=== PATIENT | male | born 1970 | race Caucasian/White ===

== ENCOUNTER 2016-12-14 16:05 | Emergency (ER) | payer MEDICAID ==
[2016-12-14 16:21] VITALS: TEMP 97.4
[2016-12-14 17:10] LABS: BASO % 0.4 % (0.0-2.0); EOS # 0.2 K/uL (0.0-0.7); EOS % 4.1 % (0.0-4.0); LYMPH # 1.8 K/uL (1.0-4.3); LYMPH % 34.4 % (20.0-40.0); MEAN CELL VOLUME 86.4 fL (80.0-94.0); MEAN CORPUSCULAR HEMOGLOBIN 27.3 pg (27.0-31.0); MEAN CORPUSCULAR HGB CONC 31.7 g/dL (33.0-37.0); MEAN PLATELET VOLUME 8.9 fL (7.2-11.7); MONO # 0.7 K/uL (0.0-0.8); MONO % 12.6 % (0.0-10.0); RED CELL DISTRIBUTION WIDTH 16.4 % (11.5-14.5); WHITE BLOOD COUNT 5.4 K/uL (4.8-10.8)
[2016-12-14 17:16] LABS: CHLORIDE 104 mmol/L (98-107)
[2016-12-14 17:17] LABS: POTASSIUM 3.7 mmol/L (3.6-5.2); SODIUM 145 mmol/L (132-148)
[2016-12-14 17:18] LABS: INR 1.6
[2016-12-14 17:19] LABS: ALB/GLOB RATIO 1.3 (1.0-2.1); AST/SGOT 32 U/L (17-59); BILIRUBIN,TOTAL 0.5 mg/dL (0.2-1.3); CARBON DIOXIDE 32 mmol/L (22-30); GFR AFRICAN-AMERICAN > 60; TOTAL PROTEIN 6.8 g/dL (6.3-8.3)
[2016-12-14 17:20] LABS: ALKALINE PHOSPHATASE 104 U/L (38-126); ALT/SGPT 36 U/L (21-72); BLOOD UREA NITROGEN 16 mg/dL (9-20); CALCIUM 8.8 mg/dl (8.6-10.4); GLUCOSE,RANDOM 95 mg/dL (75-110)
--- NOTE | 2016-12-14 17:20 | C.PDOC ---
History Of Present Illness 46 year old male with a history of chronic bilateral leg swelling for 2 years presents to the ED with complaints of the swelling acutely worsening for the past few days. Patient states he takes 80mg Lasix daily and admits he still smokes. Denies chest pain, palpitations, SOB, fever, or any other complaints at this time. Time Seen by Provider: 12/14/16 16:38 Chief Complaint (Nursing): Lower Extremity Problem/Injury History Per: Patient History/Exam Limitations: no limitations Onset/Duration Of Symptoms: Days Current Symptoms Are (Timing): Still Present Severity: Mild Past Medical History Reviewed: Historical Data, Nursing Documentation, Vital Signs Vital Signs: Last Vital Signs Temp 97.4 F L 12/14/16 18:27 Pulse 90 12/14/16 18:27 Resp 18 12/14/16 18:27 BP 139/98 H 12/14/16 18:27 Pulse Ox 95 12/14/16 18:29 - Medical History PMH: Asthma, Back Problems, CHF, Hypercholesterolemia - [facility] Procedures TETANUS TOXOID ADMINIST (05/31/13) Family History: States: No Known Family Hx - Social History Hx Tobacco Use: Yes Hx Alcohol Use: No Hx Substance Use: No - Immunization History Hx Tetanus Toxoid Vaccination: Yes Hx Influenza Vaccination: Yes Hx Pneumococcal Vaccination: Yes Review Of Systems Except As Marked, All Systems Reviewed And Found Negative. Constitutional: Negative for: Fever, Chills Cardiovascular: Positive for: Edema. Negative for: Chest Pain, Palpitations Respiratory: Negative for: Cough, Shortness of Breath Gastrointestinal: Negative for: Abdominal Pain Physical Exam - Physical Exam Appears: Non-toxic, No Acute Distress Skin: Normal Color, Warm, Dry, No Rash Head: Atraumatic, Normacephalic Eye(s): bilateral: Normal Inspection, PERRL, EOMI Oral Mucosa: Moist Chest: Symmetrical, No Deformity Cardiovascular: Rhythm Regular, No Friction Rub, No Murmur Respiratory: Decreased Breath Sounds (+Decreased breath sounds bilaterally), No Accessory Muscle Use, No Rales, No Rhonchi, No Wheezing Gastrointestinal/Abdominal: Soft, No Tenderness, Distention, No Guarding, No Rebound Extremity: Normal ROM, Pedal Edema (4+ tense pitting edema), No Calf Tenderness , No Deformity, Other (No weeping or evidence of cellulitis) Pulses: Left Dorsalis Pedis: Normal, Right Dorsalis Pedis: Normal Neurological/Psych: Oriented x3, Normal Speech, Normal Cognition, Normal Motor Gait: Steady ED Course And Treatment - Laboratory Results Result Diagrams: 12/14/16 17:04 12/14/16 17:04 O2 Sat by Pulse Oximetry: 95 (Room air) Pulse Ox Interpretation: Normal - Radiology CXR: Viewed By Me, Read By Radiologist CXR Interpretation: Yes: Other (Persistent moderate cardiomegaly, mild pulmonary venous congestion and small left pleural effusion.) Medical Decision Making Medical Decision Making: Plan: * CXR * Blood work * Lasix * Reassess Progress: O re-exam, the patient reports that his are always this swollen at baseline. Patient ambulatory in the ED with steady gait. Patient will follow up with the PMD in 1-2 days for further evaluation. Disposition - Disposition Referrals: Yasmeen Ram MD [Staff Provider] - Disposition: HOME/ ROUTINE Disposition Time: 17:57 Condition: GOOD Additional Instructions: Continue taking Lasix and follow up with the medical doctor within 1-2 days. Return of worsened. Instructions: Leg Edema (ED) - Clinical Impression Clinical Impression: Edema of lower extremity - PA / BILINGUAL MEDICAL ASSISTANT / Resident Statement MD/DO has reviewed & agrees with the documentation as recorded. - Scribe Statement The provider has reviewed the documentation as recorded by the Scribe Robert Lam. All medical record entries made by the Scribe were at my direction and personally dictated by me. I have reviewed the chart and agree that the record accurately reflects my personal performance of the history, physical exam, medical decision making, and the department course for this patient. I have also personally directed, reviewed, and agree with the discharge instructions and disposition.
--- NOTE | 2016-12-14 17:30 | RAD ---
PROCEDURE: CHEST RADIOGRAPH, 1 VIEW HISTORY: Chest pain and shortness of breath COMPARISON: 05/30/2016 FINDINGS: LUNGS: There is mild pulmonary venous congestion. There is a persistent small left pleural effusion. PLEURA: No pneumothorax or pleural fluid seen. CARDIOVASCULAR: The heart remains enlarged. OSSEOUS STRUCTURES: No significant abnormalities. VISUALIZED UPPER ABDOMEN: Normal. OTHER FINDINGS: None. IMPRESSION: Persistent moderate cardiomegaly, mild pulmonary venous congestion and small left pleural effusion.
[2016-12-14 18:29] VITALS: BP 139/98; PULSE 90; RESP 18; O2SAT 95
== END 2016-12-14 18:25 | disposition home or self-care (01) ==
LOC: C.ER 16:05
DX: R60.0 Localized edema (principal)
CPT/HCPCS: 71010; 80053; 83880; 84484; 85025; 85610; 85730; 96374; 99285; J1940

== ENCOUNTER 2017-02-04 21:55 | Inpatient (IN) | payer SELFPAY ==
[2017-02-04 21:55] VITALS: BMI 44.3
[2017-02-04 22:54] LABS: BASO % 0.6 % (0.0-2.0); EOS # 0.2 K/uL (0.0-0.7); EOS % 3.7 % (0.0-4.0); HEMATOCRIT 40.7 % (35.0-51.0); MEAN CELL VOLUME 85.2 fL (80.0-94.0); MEAN CORPUSCULAR HEMOGLOBIN 26.9 pg (27.0-31.0); MEAN CORPUSCULAR HGB CONC 31.5 g/dL (33.0-37.0); MEAN PLATELET VOLUME 8.6 fL (7.2-11.7); MONO # 0.9 K/uL (0.0-0.8); MONO % 13.8 % (0.0-10.0); NRBC % 0.2 % (0.0-2.0); WHITE BLOOD COUNT 6.5 K/uL (4.8-10.8)
[2017-02-04 23:02] LABS: CHLORIDE 104 mmol/L (98-107); INR 1.9; SODIUM 143 mmol/L (132-148)
--- NOTE | 2017-02-04 23:02 | C.PDOC ---
History Of Present Illness Patient presents to the ER with a complaint of a dull, aching chest pain and worsening chronic lower extremity edema. Patient is speaking in complete sentences. Denies fever, chills, nausea or vomiting. Time Seen by Provider: 02/04/17 23:02 Chief Complaint (Nursing): Chest Pain History Per: Patient History/Exam Limitations: no limitations Onset/Duration Of Symptoms: Days Current Symptoms Are (Timing): Still Present Severity: Mild Pain Scale Rating Of: 4 Quality: Dull, Aching Associated Symptoms: denies: Nausea, Other (Fever, Chills, Vomiting) Modifying Factors: None Exacerbating Factors: None Alleviating Factors: None Recent travel outside of the [place]: No Additional History Per: Patient Past Medical History Reviewed: Historical Data, Nursing Documentation, Vital Signs Vital Signs: Last Vital Signs Temp 98.6 F 02/05/17 02:06 Pulse 81 02/05/17 02:49 Resp 18 02/05/17 02:06 BP 103/69 02/05/17 02:06 Pulse Ox 98 02/05/17 02:06 - Medical History PMH: Asthma, Back Problems, CHF, Hypercholesterolemia Surgical History: No Surg Hx - [facility] Procedures TETANUS TOXOID ADMINIST (05/31/13) Family History: States: No Known Family Hx - Social History Hx Tobacco Use: Yes Hx Alcohol Use: No Hx Substance Use: No - Immunization History Hx Tetanus Toxoid Vaccination: No Hx Influenza Vaccination: No Hx Pneumococcal Vaccination: No Review Of Systems Constitutional: Negative for: Fever, Chills Eyes: Negative for: Vision Change ENT: Negative for: Throat Pain Cardiovascular: Positive for: Chest Pain Respiratory: Negative for: Shortness of Breath, Wheezing Gastrointestinal: Negative for: Nausea, Vomiting Genitourinary: Negative for: Dysuria, Hematuria Musculoskeletal: Positive for: Other (Lower extremity edema) Skin: Negative for: Rash, Jaundice Neurological: Negative for: Weakness, Numbness Psych: Negative for: Anxiety Physical Exam - Physical Exam Appears: Non-toxic Skin: Warm, Dry Oral Mucosa: Moist Neck: Supple Chest: Symmetrical, No Tenderness Cardiovascular: Rhythm Regular, No Murmur Respiratory: Rales (Scattered at bases), No Rhonchi, No Wheezing Gastrointestinal/Abdominal: Soft, No Tenderness, Distention Back: No CVA Tenderness Extremity: Other (Bilateral pitting edema of lower extremities up to mid thigh. Huge edema at the dorsum of feet.) ED Course And Treatment - Laboratory Results Result Diagrams: 02/04/17 22:45 02/04/17 22:45 ECG: Interpreted By Me, Viewed By Me ECG Rhythm: Sinus Rhythm (100), 1st Degree HB, Nonspecific Changes O2 Sat by Pulse Oximetry: 90 Pulse Ox Interpretation: Abnormal - Radiology CXR Interpretation: Yes: Cardiomegaly, Other (left effusion , chf, worse than ) Nexus Criteria: Negative Progress Note: EKG, blood work and CXR ordered. Aspirin administered. Disposition Discussed With : Yasmeen Ram Comment: accepted the pt and took over the care at Doctor Will See Patient In The: Hospital Counseled Patient/Family Regarding: Studies Performed, Diagnosis - Disposition Disposition: HOSPITALIZED Disposition Time: 02:00 Condition: FAIR - Clinical Impression Clinical Impression: Chest pain, Leg edema - Scribe Statement The provider has reviewed the documentation as recorded by the Scribe Tony Coles All medical record entries made by the Scribe were at my direction and personally dictated by me. I have reviewed the chart and agree that the record accurately reflects my personal performance of the history, physical exam, medical decision making, and the department course for this patient. I have also personally directed, reviewed, and agree with the discharge instructions and disposition.
[2017-02-04 23:03] LABS: POTASSIUM 4.1 mmol/L (3.6-5.2)
[2017-02-04 23:04] LABS: GFR AFRICAN-AMERICAN > 60
[2017-02-04 23:05] LABS: ALB/GLOB RATIO 1.1 (1.0-2.1); ALKALINE PHOSPHATASE 123 U/L (38-126); ALT/SGPT 44 U/L (21-72); AST/SGOT 36 U/L (17-59); BILIRUBIN,TOTAL 0.6 mg/dL (0.2-1.3); BLOOD UREA NITROGEN 16 mg/dL (9-20); CARBON DIOXIDE 32 mmol/L (22-30); GLUCOSE,RANDOM 111 mg/dL (75-110); TOTAL PROTEIN 6.7 g/dL (6.3-8.3)
[2017-02-04 23:06] LABS: CALCIUM 8.9 mg/dl (8.6-10.4)
[2017-02-04] MEDS ORDERED: Oxycodone/Acetaminophen 5/325 mg Tab PO PRN (23:49)
[2017-02-05] MEDS ORDERED: Oxycodone/Acetaminophen 5/325 mg Tab ONE (00:23)
--- NOTE | 2017-02-05 07:16 | CP.PCM.PN ---
Subjective - Date & Time of Evaluation Date of Evaluation: 02/05/17 Time of Evaluation: 10:20 - Subjective Subjective: Patient seen in room with nurse present. He says he has no chest pain and is asking to go home. He say she has virk at home for assistance. Objective - Vital Signs/Intake and Output Vital Signs (last 24 hours): Temp Pulse Resp BP Pulse Ox 98.6 F 81 18 103/69 90 L 02/05/17 02:06 02/05/17 02:49 02/05/17 02:06 02/05/17 02:06 02/05/17 06:03 Intake and Output: 02/05/17 02/05/17 06:59 18:59 Output Total 1200 Balance -1200 - Medications Medications: Current Medications Aspirin (Aspirin Chewable) 81 mg PO DAILY [facility] Furosemide (Lasix) 40 mg PO DAILY [facility] Oxycodone/Acetaminophen (Percocet 5/325 Mg Tab) 2 tab PO Q4H PRN PRN Reason: pain Stop: 02/07/17 23:50 Last Admin: 02/05/17 00:27 Dose: 2 tab Rivaroxaban (Xarelto) 20 mg PO DAILY [facility] - Labs Labs: PT 22.1 SECONDS (9.7-12.2) H 02/04/17 22:45 INR 1.9 02/04/17 22:45 APTT 43 SECONDS (21-34) H 02/04/17 22:45 - Constitutional Appears: Non-toxic, No Acute Distress - Head Exam Head Exam: NORMAL INSPECTION - Eye Exam Eye Exam: Normal appearance Pupil Exam: NORMAL ACCOMODATION - Respiratory Exam Respiratory Exam: Clear to Ausculation Bilateral. absent: Rales, Rhonchi, Wheezes - Cardiovascular Exam Cardiovascular Exam: REGULAR RHYTHM, RRR, +S1, +S2, Murmur. absent: Gallop, Rubs - GI/Abdominal Exam GI & Abdominal Exam: Soft, Tenderness. absent: Normal Bowel Sounds - Extremities Exam Additional comments: Severe edma in how his both feet going all the up to his thigh. - Neurological Exam Neurological Exam: Alert - Psychiatric Exam Psychiatric exam: Normal Affect, Normal Mood - Skin Skin Exam: Pallor Assessment and Plan (1) Chest pain Assessment & Plan: Two milton's negative, patient discharged home, he will see Dr. Ram on Saturday. management per Dr. Ram. Status: Acute
[2017-02-05 08:10] VITALS: PULSE 93; RESP 20; TEMP 96.9; O2SAT 94
--- NOTE | 2017-02-05 09:49 | CARD ---
APPROVED REPORT EKG Measurement Heart [id number] <Conclusion> Sinus rhythm with 1st degree AV block with premature atrial complexes Otherwise normal ECG
[2017-02-05 10:01] VITALS: BP 126/87
--- NOTE | 2017-02-05 11:23 | RAD ---
PROCEDURE: CHEST RADIOGRAPH, 1 VIEW HISTORY: SOB/CHEST PAIN COMPARISON: 12/14/2016 FINDINGS: LUNGS: Poor inspiration with low lung volumes, crowded bronchovascular markings and mild bibasilar atelectasis. Additionally, there also appears mild central pulmonary venous congestion. Clinical correlation recommended. PLEURA: No apparent pneumothorax. CARDIOVASCULAR: Heart size difficult to assess the due to some silhouetting of left cardiac border. Questionable small bilateral effusions. OSSEOUS STRUCTURES: No significant abnormalities. VISUALIZED UPPER ABDOMEN: Normal. OTHER FINDINGS: None. IMPRESSION: Poor inspiration with low lung volumes, crowded bronchovascular markings and mild bibasilar atelectasis. There also appears be mild central pulmonary venous congestion as above. Further correlation recommended.
[2017-02-05 11:34] LABS: BASO % 0.5 % (0.0-2.0); EOS # 0.2 K/uL (0.0-0.7); EOS % 2.7 % (0.0-4.0); HEMATOCRIT 40.4 % (35.0-51.0); LYMPH # 1.5 K/uL (1.0-4.3); LYMPH % 24.2 % (20.0-40.0); MEAN CELL VOLUME 85.6 fL (80.0-94.0); MEAN CORPUSCULAR HEMOGLOBIN 26.5 pg (27.0-31.0); MEAN PLATELET VOLUME 8.9 fL (7.2-11.7); MONO # 0.8 K/uL (0.0-0.8); NRBC % 0.1 % (0.0-2.0); RED CELL DISTRIBUTION WIDTH 16.3 % (11.5-14.5)
[2017-02-05 11:41] LABS: INR 1.2
[2017-02-05 11:47] LABS: CHLORIDE 101 mmol/L (98-107); POTASSIUM 3.9 mmol/L (3.6-5.2); SODIUM 145 mmol/L (132-148)
[2017-02-05 11:49] LABS: GFR AFRICAN-AMERICAN > 60
[2017-02-05 11:50] LABS: ALB/GLOB RATIO 1.1 (1.0-2.1); ALKALINE PHOSPHATASE 119 U/L (38-126); ALT/SGPT 47 U/L (21-72); AST/SGOT 33 U/L (17-59); BILIRUBIN,TOTAL 0.6 mg/dL (0.2-1.3); BLOOD UREA NITROGEN 13 mg/dL (9-20); CARBON DIOXIDE 37 mmol/L (22-30); GLUCOSE,RANDOM 132 mg/dL (75-110); PHOSPHOROUS 3.9 mg/dL (2.5-4.5); TOTAL PROTEIN 6.7 g/dL (6.3-8.3)
[2017-02-05 11:51] LABS: CALCIUM 8.6 mg/dl (8.6-10.4); MAGNESIUM 2.5 mg/dL (1.6-2.3)
[2017-02-05 12:19] LABS: THYROID STIMULATING HORMONE 1.22 mIU/L (0.46-4.68)
--- NOTE | 2017-02-05 17:57 | PCM.HF ---
Heart Failure Core Measure - Heart Failure Ejection Fraction: 40 % or Greater (EF >64%) AARTI Inhibitor Prescribed: No Contraindication/Reason for not providing: NOT RX BY MD Beta-Ari Prescribed: None Contraindication/Reason for not providing: NOT RX BY MD Angiotensin II Receptor Ari Prescribed: No Contraindication/Reason for not providing: NOT RX BY MD AnticoagulationTherapy for Atrial Fibrillation/Atrialflutter: Yes Aldosterone Antagonist Prescribed: No Contraindication/Reason for not providing: EF>40% Hydralazine Nitrate Prescribed: No Contraindication/Reason for not providing: EF>40% Implantable Cardioverter Defibrillator Therapy: No Contraindication/Reason for not providing: EF >40% Cardiac Resynchronization Therapy Prescribed: No Contraindication/Reason for not providing: EF >40% - Follow up Will be discharged to: Home Follow Up Date (must be within 7 days from discharge): 02/07/17 Follow Up Time: 09:00
--- NOTE | 2017-02-06 08:30 | HP ---
A 46-year-old male who came to the hospital with chief complaint of chest pain, weakness, leg pain. The patient has history of pulmonary embolism, history of lymphedema. The patient came to the hospit al and advised admission. The patient has past medical history of pulmonary embolism, ____, ____, ly mphedema. PHYSICAL EXAMINATION: GENERAL: The patient is awake, alert, oriented. VITAL SIGNS: Temperature 98, pulse 90. HEENT: Within normal limits. NECK: Supple. CHEST: Symmetrical. HEART: Regular. ABDOMEN: Soft. EXTREMITIES: Massive nonpitting edema. The patient has ____chest pain. The patient ____ supportive care. Yasmeen Raymundo MD cc: [id number] TT: 02/05/2017 16:38:59 02/06/2017 07:29:02
== END 2017-02-05 13:50 | disposition home or self-care (01) | DRG 313 ==
LOC: C.ER 21:55 → C.9E 02-05 00:31 → C.6T 02-05 01:29
PROVIDERS: ADMIT Internal Medicine Pulmonary Disease; ATTEND Internal Medicine Pulmonary Disease
DX: R07.89 Other chest pain (principal); I50.9 Heart failure, unspecified; E78.00 Pure hypercholesterolemia, unspecified; J45.909 Unspecified asthma, uncomplicated; I89.0 Lymphedema, not elsewhere classified; Z86.711 Personal history of pulmonary embolism